=== PATIENT | female | born 1980 | race Caucasian/White ===

== ENCOUNTER 2016-11-16 01:21 | Emergency (ER) | payer SELFPAY ==
[~2016-11-16] VITALS: Ht 149.9 cm; Wt 82.0 kg
[2016-11-16 01:26] VITALS: Ht 149.9 cm; Wt 82.0 kg
== END 2016-11-16 05:30 | disposition left against medical advice (07) ==
LOC: FTE 01:21 → E/R 05:30
DX: Z53.21 Procedure and treatment not carried out due to patient leaving prior to being seen by health care provider (principal)

== ENCOUNTER 2018-10-22 16:53 | Emergency (ER) | payer MEDICAID ==
[~2018-10-22] VITALS: Ht 149.9 cm; Wt 80.5 kg
[2018-10-22 16:56] VITALS: Ht 149.9 cm; Wt 80.5 kg
[2018-10-22] MEDS ORDERED: IBUP-1542 PO (19:48)
--- NOTE | 2018-10-22 19:49 | ERD ---
ER Documentation Chief Complaint Chief Complaint CHEST PAIN RADIATING DOWN LT ARM HPI 38-year-old woman complains of 1 month constant paresthesias and pain to the left hand initially at triage she complained of chest pain although that resolved and she has had multiple prior episodes of similar chest pain in the past. She is really here out of concern for the pain and paresthesias to the left upper extremity, she states the pain begins near the left lateral neck and radiates down to the hand and she feels paresthesias to most of her fingers in the left hand. She has had no weakness in the extremity although she is left- hand dominant. She also complains of neck pain intermittently over the last 6 months. About 6 months ago she had similar symptoms which lasted for a month and she was treated with oral prednisone which helped her symptoms only a little bit. She denies recent trauma, no difficulty using her left hand, no fevers or chills, no weight loss, no complaints of shortness of breath. ROS All systems reviewed and are negative except as per history of present illness. Medications Home Meds Active Scripts Ibuprofen* (Motrin*) 600 Mg Tab, 600 MG PO Q8 PRN for PAIN AND/OR INFLAMMATION, #30 TAB Prov:ELKE JAY MD 10/22/18 Allergies Allergies: Coded Allergies: No Known Drug Allergies (Verified Allergy, Unknown, 08/24/09) PMhx/Soc Obesity History of Surgery: Yes ( X 3) Hx Neurological Disorder: No Hx Respiratory Disorders: No Hx Cardiac Disorders: No Hx Miscellaneous Medical Probl: No Hx Alcohol Use: Yes (Occasional) Hx Substance Use: No Hx Tobacco Use: Yes (OCCASIONALLY) Smoking Status: Current some day smoker FmHx Family History: No diabetes Physical Exam Vitals Vital Signs Date Temp Pulse Resp B/P (MAP) Pulse Ox O2 O2 Flow FiO2 Time Delivery Rate 10/22/18 87 20 123/83 100 Room Air 19:17 (96) 10/22/18 98.6 93 17 147/76 98 16:56 (99) Physical Exam GENERAL: Well-developed, well-nourished, well-hydrated, in no apparent distress, looks nontoxic in appearance HEENT: Moist mucous membranes, pink conjunctiva, no cervical spine tenderness or step-off deformities, no goiter, no jaundice or icterus, extraocular movements intact without pain. No submandibular induration, and no pharyngeal erythema NEURO: Alert and oriented 3, cranial nerves II through XII intact bilaterally, pupils equal round reactive to light, no focal deficits or facial asymmetry, sensation intact distally Strength 5/5 in upper and lower extremities bilaterally CARDIAC: Regular rate and rhythm, no murmurs rubs or gallops LUNGS: Clear bilaterally no wheezing crackles or stridor ABDOMEN: Soft nontender, no guarding, no rigidity, no rebound, no psoas sign no obturator sign. Normoactive bowel sounds SKIN: Warm and dry to touch, no abrasions, contusions, or hematomas, no lacerations, no ecchymosis, no target lesions, and without ulcers EXTREMITIES: No clubbing cyanosis or edema, calves are bilaterally symmetrical, no Homans sign, no popliteal cord sign. Distal pulses equal and bilateral PSYCH: Normal affect without agitation or irritability Procedures/MDM EKG performed, read by me revealed a normal sinus rhythm at 89 bpm, normal axis, narrow QRS complex, no concerning ST elevations or depressions noted CT scan of the brain was negative for acute bleed mass or shift. Patient has symptoms of cervical radiculopathy and I told her if symptoms continue or get worse she will require MR imaging of the cervical spine and poss ibly of the left upper extremity although this will have to be performed on an outpatient basis. I recommended follow-up with her PMD for continued medical management Differential diagnoses considered, included but not limited to acute coronary syndrome, pulmonary embolism, aortic dissection, abdominal aortic aneurysm, sepsis, stroke, meningitis, encephalitis, pneumonia, appendicitis, cholecystitis, bowel obstruction, pyelonephritis, nephrolithiasis, cystitis, as well as metabolic, hematologic, and electrolyte abnormalities. As well as abscess, cellulitis, fractures, and dislocations. Patient feels much better at this time, and vital signs are normal, symptoms have improved. I did give strict instructions to return to the ED if symptoms continue or worsen, patient will otherwise follow-up with primary care physician. Patient understood instructions and agreed to plan. Disclaimer: Inadvertent spelling and grammatical errors are likely due to EHR/dictation software use and do not reflect on the overall quality of patient care. Also, please note that the electronic time recorded on this note does not necessarily reflect the actual time of the patient encounter. Departure Diagnosis: Primary Impression: Chest pain Chest pain type: unspecified Qualified Codes: R07.9 - Chest pain, uns pecified Additional Impressions: Cervical radiculopathy Paresthesias Condition: Good ELKE JAY MD Oct 22, 2018 19:49
[2018-10-22 22:35] VITALS: BP 130/84; PULSE 91; RESP 15
== END 2018-10-22 22:35 | disposition home or self-care (01) ==
LOC: E/R 16:53
DX: R07.9 Chest pain, unspecified (principal); M54.12 Radiculopathy, cervical region; R20.2 Paresthesia of skin; F17.210 Nicotine dependence, cigarettes, uncomplicated
CPT/HCPCS: 70450; 93005; Z7502; Z7610